=== PATIENT | male | born 1955 | race Caucasian/White ===

== ENCOUNTER 2019-08-28 15:34 | Emergency (ER) | payer MEDICARE, BC, OTHER ==
--- NOTE | 2019-08-28 16:01 | ER Document Report ---
ED Medical Screen (RME) - General Chief Complaint: Chest Pain Stated Complaint: CHEST PAIN Time Seen by Provider: 08/28/19 15:50 Primary Care Provider: DERRICK HERNÁNDEZ DO [Primary Care Provider] - Follow up as needed Information source: Patient Notes: 63-year-old male patient with history of hypertension, hyperlipidemia and diabetes presenting to the emergency department chief complaint of chest pressure. Patient reports he was doing some work on his home when all of a sudden he did not feel well. He states this occurred several hours prior to arrival. He states that he felt very dizzy and faint, he states he had a slight pressure across his chest and pain in his left arm. He states he went and took a nap for several hours and then resumed his work, he states he had another episode of similar symptoms so decided to come to the emergency department to get checked out. Lung sounds clear and equal bilaterally. Heart sounds S1-S2 present, no ectopy noted. I have greeted and performed a rapid initial assessment of this patient. A comprehensive ED assessment and evaluation of the patient, analysis of test results and completion of the medical decision making process will be conducted by additional ED providers. I have specifically instructed the patient or family members with the patient to immediately return to any nursing staff should anything change in the patient's condition or with their chief complaint. TRAVEL OUTSIDE OF THE [place] IN LAST 30 DAYS: No - Related Data Allergies/Adverse Reactions: No Known Allergies Allergy (Unverified 08/28/19 15:50) Doctor's Discharge - Discharge Referrals: DERRICK HERNÁNDEZ DO [Primary Care Provider] - Follow up as needed
[2019-08-28 16:42] LABS: ABSOLUTE BASOPHILS # (AUTO) 0.1 10^3/uL (0.0-0.2); ABSOLUTE LYMPHOCYTES (AUTO) 1.6 10^3/uL (0.5-4.7); ABSOLUTE MONOCYTES (AUTO) 0.7 10^3/uL (0.1-1.4); ABSOLUTE NEUT (AUTO) 9.6 10^3/uL (1.7-8.2); BASOPHILS % (AUTO) 0.6 % (0-2); EOSINOPHILS % (AUTO) 0.4 % (0-6); HEMATOCRIT 40.7 % (37.9-51.0); HEMOGLOBIN 14.1 g/dL (13.5-17.0); LYMPHOCYTES % (AUTO) 13.4 % (13-45); MEAN CORPUSCULAR HEMOGLOBIN 31.5 pg (27.0-33.4); MEAN CORPUSCULAR HGB CONC 34.6 g/dL (32.0-36.0); MEAN CORPUSCULAR VOLUME 91 fl (80-97); MONOCYTES % (AUTO) 5.9 % (3-13); RED BLOOD COUNT 4.47 10^6/uL (4.35-5.55); RED CELL DISTRIBUTION WIDTH 12.9 % (11.5-14.0); SEGMENTED NEUTROPHILS % (AUTO) 79.7 % (42-78); TOTAL CELLS COUNTED % (AUTO) 100 %
[2019-08-28 16:57] LABS: ALBUMIN 4.9 g/dL (3.5-5.0); ALKALINE PHOSPHATASE 52 U/L (38-126); ANION GAP 10 (5-19); ASPARTATE AMINO TRANSFERASE 29 U/L (17-59); BILIRUBIN,TOTAL 0.6 mg/dL (0.2-1.3); BLOOD UREA NITROGEN 19 mg/dL (7-20); CALCIUM 10.3 mg/dL (8.4-10.2); CARBON DIOXIDE 25 mmol/L (22-30); CHLORIDE 99 mmol/L (98-107); GLUCOSE 133 mg/dL (75-110); POTASSIUM 5.2 mmol/L (3.6-5.0); TOTAL PROTEIN 8.1 g/dL (6.3-8.2)
[2019-08-28 17:15] LABS: PLATELET COUNT 288 10^3/uL (150-450)
--- NOTE | 2019-08-28 22:50 | RADIOLOGY REPORT (SQ) ---
EXAM DESCRIPTION: XR CHEST 1 VIEW COMPLETED DATE/TME: 08/28/2019 21:20 CLINICAL HISTORY: 63 years, Male, chest pain COMPARISON: None. EXAM DESCRIPTION: CLINICAL HISTORY: chest pain COMPARISON: None. FINDINGS: Single view of the chest is submitted. Cardiac silhouette is normal. No focal parenchymal or pleural disease. There is no significant pulmonary vascular engorgement. IMPRESSION: No evidence of acute cardiopulmonary disease.
--- NOTE | 2019-08-28 23:14 | EKG REPORT ---
SEVERITY:- ABNORMAL ECG - SINUS RHYTHM ATRIAL PREMATURE COMPLEX INCOMPLETE RIGHT BUNDLE BRANCH BLOCK : Confirmed by: Renee Mcclendon 28-Aug-2019 23:13:39
--- NOTE | 2019-08-28 23:41 | ER Document Report ---
Entered by UNIQUE CRUZ SCRIBE 08/28/190 Acting as scribe for:CHELSY BROWN MD ED General - General Chief Complaint: Chest Pain Stated Complaint: CHEST PAIN Time Seen by Provider: 08/28/19 15:50 Primary Care Provider: DERRICK HERNÁNDEZ DO [NO LOCAL MD] - Follow up as needed Information source: Patient Notes: 63-year-old male presents to the emergency department complaining of chest pain that began this morning while working. Patient states that chest pain is described as a soreness with movement. Patient states that his soreness is better now. Patient explains that he felt the pain when replacing a faucet, he stopped, had some water and sat down for a few minutes. Patient stated that when he started working on the faucet again, he felt the soreness once again. Patient denies neck pain, fever and shortness of breath. TRAVEL OUTSIDE OF THE [place] IN LAST 30 DAYS: No - Related Data Allergies/Adverse Reactions: No Known Allergies Allergy (Unverified 08/28/19 15:50) Home Medications: Fiasp 5mg, Atrovastation 40mg, Tresiba 30mg, and lisinopril 20mg. Past Medical History - General Information source: Patient - Social History Smoking Status: Never Smoker Cigarette use (# per day): No Chew tobacco use (# tins/day): No Family History: CAD Patient has suicidal ideation: No Patient has homicidal ideation: No - Past Medical History Cardiac Medical History: Reports: Hx Hypercholesterolemia, Hx Hypertension Endocrine Medical History: Reports: Hx Diabetes Mellitus Type 2 Past Surgical History: Reports: Hx Orthopedic Surgery - rt hip Review of Systems - Review of Systems Constitutional: See HPI. denies: Fever EENT: No symptoms reported Cardiovascular: See HPI, Chest pain Respiratory: See HPI. denies: Short of breath Gastrointestinal: No symptoms reported Genitourinary: No symptoms reported Male Genitourinary: No symptoms reported Musculoskeletal: No symptoms reported Skin: No symptoms reported Hematologic/Lymphatic: No symptoms reported Neurological/Psychological: No symptoms reported -: Yes All other systems reviewed and negative Physical Exam - Vital signs Vitals: Temp Pulse BP Pulse Ox 97.5 F 73 163/86 H 98 08/28/19 15:51 08/28/19 15:51 08/28/19 15:51 08/28/19 15:51 - Notes Notes: Physical Exam: General: Alert, appears well. HEENT: Normocephalic. Atraumatic. PERRL. Extraocular movements intact. Oropharynx clear. Neck: Supple. Non-tender. Respiratory: No respiratory distress. Clear and equal breath sounds bilaterally. Cardiovascular: Regular rate and rhythm. Abdominal: Normal Inspection. Non-tender. No distension. Normal Bowel Sounds. Back: No gross abnormalities. Extremities: Moves all four extremities. Upper extremities: Normal inspection. Normal ROM. Lower extremities: Normal inspection. No edema. Normal ROM. Neurological: Normal cognition. AAOx4. Normal speech. Psychological: Normal affect. Normal Mood. Skin: Warm. Dry. Normal color. Course - Re-evaluation Re-evalutation: 08/28/19 22:44 Patient resting comfortably pending repeat troponin at this time. Patient reports chest pain-free. 08/28/19 23:39 Again patient is chest pain-free troponin repeat is again normal not showing any increase. - Vital Signs Vital signs: Temp Pulse Resp BP Pulse Ox 97.5 F 73 15 153/85 H 97 08/28/19 15:51 08/28/19 15:51 08/28/19 20:01 08/28/19 20:01 08/28/19 20:01 - Laboratory Result Diagrams: 08/28/19 16:17 08/28/19 16:17 Laboratory results interpreted by me: 08/28/19 08/28/19 16:17 16:17 WBC 12.0 H Absolute Neuts (auto) 9.6 H Seg Neutrophils % 79.7 H Sodium 134.4 L Potassium 5.2 H Glucose 133 H Calcium 10.3 H 08/28/19 23:39 Repeat troponin is 0.012 which is again normal range without any increase. - Diagnostic Test Radiology reviewed: Image reviewed Radiology results interpreted by me: 08/28/19 22:43 Chest x-ray 1 view shows normal cardiopulmonary process on chest x-ray no acute findings. No cardiomegaly no infiltrates. - EKG Interpretation by Me Additional EKG results interpreted by me: 08/28/19 22:43 Twelve-lead EKG done 08/28/2019 at 1542 shows a normal sinus rhythm with occasional PAC. And an incomplete right bundle branch block. Discharge - Discharge Clinical Impression: Left-sided chest wall pain Condition: Stable Disposition: HOME, SELF-CARE Instructions: Chest Wall Pain ([facility]) Referrals: DERRICK HERNÁNDEZ, [NO LOCAL MD] - Follow up as needed I personally performed the services described in the documentation, reviewed and edited the documentation which was dictated to the scribe in my presence, and it accurately records my words and actions.
[2019-08-29 00:06] VITALS: BP 153/95
== END 2019-08-29 00:17 | disposition home or self-care (01) ==
LOC: ER 15:34
DX: R07.89 Other chest pain (principal); X58.XXXA Exposure to other specified factors, initial encounter; Z79.899 Other long term (current) drug therapy; I10 Essential (primary) hypertension; E11.9 Type 2 diabetes mellitus without complications
CPT/HCPCS: 36415; 71045; 80053; 84484; 85025; 93005; 93010; 99284